=== PATIENT | male | born 1985 | race Caucasian/White ===

== ENCOUNTER 2020-10-05 20:35 | Emergency (ER) | payer OTHER ==
[2020-10-05 20:50] VITALS: BP 100/64; PULSE 89; TEMP 98.9; BMI 31.7
== END 2020-10-05 21:39 | disposition home or self-care (01) ==
LOC: JERFT 20:35
DX: S80.211A Abrasion, right knee, initial encounter (principal); S80.212A Abrasion, left knee, initial encounter
CPT/HCPCS: 99283-25